=== PATIENT | female | born 1990 | race Caucasian/White ===

== ENCOUNTER 2019-10-12 20:05 | Inpatient (IN) | payer OTHER ==
[~2019-10-12] VITALS: Ht 160 cm; Wt 103.0 kg
[~2019-10-12 20:05] MED LIST: NORETHTP TOP; Verotin-Gr Cap1 EACH PO
[2019-10-12] MEDS ORDERED: LABE100 PO (20:54)
[2019-10-12] MEDS ORDERED: LEVSOD100 PO (20:56)
[2019-10-12] MEDS ORDERED: GABA300 PO (20:56)
[2019-10-12 20:57] LABS: BASOPHILS ABSOLUTE AUTO 0.02 K/mm3 (0.00-0.23); BASOPHILS PERCENT AUTO 0 % (0-2); EOSINOPHILS ABSOLUTE AUTO 0.13 K/mm3 (0.00-0.68); EOSINOPHILS PERCENT AUTO 1 % (0-6); Hematocrit 35.2 % (33.0-51.0); Hemoglobin 11.8 g/dL (11.5-16.0); IMMATURE GRAN ABSOLUTE AUTO 0.07 K/mm3 (0.00-0.10); IMMATURE GRAN PERCENT AUTO 1 % (0-1); LYMPHOCYTES ABSOLUTE AUTO 1.68 K/mm3 (0.84-5.20); LYMPHOCYTES PERCENT AUTO 17 % (21-46); MONOCYTES ABSOLUTE AUTO 0.81 K/mm3 (0.16-1.47); MONOCYTES PERCENT AUTO 8 % (4-13); Mean Corpuscular HGB 29.7 pg (26.0-34.0); Mean Corpuscular HGB Conc 33.5 g/dL (31.5-36.5); Mean Corpuscular Volume 89 fL (80-100); Mean Platelet Volume 12.5 fL (9.1-12.4); NEUTROPHILS ABSOLUTE AUTO 7.01 K/mm3 (1.96-9.15); NEUTROPHILS PERCENT AUTO 72 % (41-73); Platelet Count 178 K/mm3 (150-400); RDW Coefficient Variation 13.1 % (11.7-14.2); RDW Standard Deviation 42.4 fL (35.1-46.3); Red Blood Cell Count 3.97 M/mm3 (3.80-5.20); White Blood Cell Count 9.72 K/mm3 (4.00-11.30)
--- NOTE | 2019-10-13 03:52 | NUR ---
PT PAIN IS ASSESSED WITH ROUNDING AND VITALS. PT DENIES HAVING MUCH PAIN AND DECLINES ANY MEDICATIONS FOR PAIN WITH EACH ASSESSMENT. PT AGREES TO REPORT ANY CHANGES IN PAIN AND IF SHE DESIRES MEDICATION FOR PAIN CONTROL.
[2019-10-13 05:40] LABS: Hematocrit 32.6 % (33.0-51.0); Mean Corpuscular HGB Conc 33.7 g/dL (31.5-36.5); Mean Corpuscular Volume 89 fL (80-100); Mean Platelet Volume 12.3 fL (9.1-12.4); Platelet Count 178 K/mm3 (150-400); RDW Coefficient Variation 13.2 % (11.7-14.2); RDW Standard Deviation 42.4 fL (35.1-46.3); Red Blood Cell Count 3.67 M/mm3 (3.80-5.20); White Blood Cell Count 13.14 K/mm3 (4.00-11.30)
--- NOTE | 2019-10-13 08:47 | NUR ---
RN ROUNDED TO HELP W/ . PT STATES NB HAD FED WELL AN HOUR AGO. INSTRUCT/REVIEWED BOOKLET ON WHAT TO EXPECT DURING THE FIRST WEEK W/ , CHANGES IN NB, AND HOW TO CORRECTLY LINE UP AND LATCH NB. PT VERBALIZED UNDERSTANDING, DENIES ANY FURTHER QUESTIONS OR CONCERNS. RN WILL ATTEMPT TO ROUND AGAIN TODAY TO HELP W/ LATCH ON.
[2019-10-13] MEDS ORDERED: LEVSOD25 PO (14:19)
--- NOTE | 2019-10-13 16:04 | NUR ---
BOARDER MOTHER DISCHARGED TO BOARDER STATUS. VERBALIZES UNDERSTANDING OF DC INSTRUCTIONS AND FOLLOW UP APPOINTMENTS. CARING FOR SELF AND BABY INDEPENDANTLY. NO QUESTIONS OR CONCERNS. STABLE.
== END 2019-10-13 17:25 | disposition home or self-care (01) | DRG 807 ==
LOC: OBS 20:05 → BC 20:11 → OBS 20:23 → BC 20:25
PROVIDERS: ADMIT Advanced Practice Midwife
PROC: 10E0XZZ Delivery of Products of Conception, External Approach (ICD-10-PCS; principal; 2019-10-12)
PROC: 0UQMXZZ Repair Vulva, External Approach (ICD-10-PCS; 2019-10-12)
DX: O99.284 Endocrine, nutritional and metabolic diseases complicating childbirth (principal); Z37.0 Single live birth; E03.9 Hypothyroidism, unspecified; O10.92 Unspecified pre-existing hypertension complicating childbirth; O71.82 Other specified trauma to perineum and vulva; Z3A.39 39 weeks gestation of pregnancy
CPT/HCPCS: 36415; 85025; 85027; 86850; 86900; 86901; A9270-GY; J2210; J2590; J2791; J7120

== ENCOUNTER 2020-01-30 08:34 | Day surgery (SDC) | payer OTHER ==
[~2020-01-30] VITALS: Ht 160 cm; Wt 92.0 kg
[~2020-01-30 08:34] MED LIST changes: +Clomiphene Citr50 MG; +FISH OIL 1,2001 EAC7 PO; +GABA300 PO; +IBUP800 PO; +LABE100 PO; +LEVO-T50 MC1 PO; +LEVSOD100 PO; +LEVSOD25 PO; +Loratadine10 MG PO; +VITAMIN D325 MC3 PO
[2020-01-30] MEDS ORDERED: PRENATAL TABLE1 EAC2 (09:25)
== END 2020-01-30 12:22 | disposition home or self-care (01) ==
LOC: ORSCSDS 08:34
PROVIDERS: Obstetrics & Gynecology
PROC: 0UT74ZZ Resection of Bilateral Fallopian Tubes, Percutaneous Endoscopic Approach (ICD-10-PCS; principal; 2020-01-30 09:45)
DX: Z30.2 Encounter for sterilization (principal); N80.3 Endometriosis of pelvic peritoneum; I10 Essential (primary) hypertension; K21.9 Gastro-esophageal reflux disease without esophagitis; E03.9 Hypothyroidism, unspecified; Z79.899 Other long term (current) drug therapy; E66.01 Morbid (severe) obesity due to excess calories; Z68.35 Body mass index [BMI] 35.0-35.9, adult
CPT/HCPCS: 88302; J0171; J0690; J1100; J1885; J2405; J2704; J2710; J3010; J7120; U0002

== ENCOUNTER 2021-10-28 09:33 | Day surgery (SDC) | payer BC, OTHER ==
[~2021-10-28] VITALS: Ht 160 cm; Wt 88.9 kg
[~2021-10-28 09:33] MED LIST changes: +PRENATAL TABLE1 EAC2
--- NOTE | 2021-10-28 12:06 | NUR ---
10/28/21 1202 DEVIN BAUTISTA E CALL TO PATIENT'S TO UPDATE THAT PROCEDURE WAS DELAYED DUE TO PRIOR PROCEDURE RUNNING LONGER THAN EXPECTED. ADVISED WHEN PT WENT IN AND HE IS AWARE.
--- NOTE | 2021-10-28 12:55 | NUR ---
10/28/21 1255 LILY ARMAS 100ML NORMAL SALINE FLUID DEFICIT FROM HYSTEROSCOPY. SURGEON AND ANESTHESIA AWARE.
== END 2021-10-28 13:41 | disposition home or self-care (01) ==
LOC: ORSCSDS 09:33
PROVIDERS: Obstetrics & Gynecology
PROC: 0UDB8ZX Extraction of Endometrium, Via Natural or Artificial Opening Endoscopic, Diagnostic (ICD-10-PCS; principal; 2021-10-28 11:00)
PROC: 0U5B8ZZ Destruction of Endometrium, Via Natural or Artificial Opening Endoscopic (ICD-10-PCS; principal; 2021-10-28 11:00)
DX: N92.1 Excessive and frequent menstruation with irregular cycle (principal); N94.6 Dysmenorrhea, unspecified; I10 Essential (primary) hypertension; Z87.891 Personal history of nicotine dependence; E03.9 Hypothyroidism, unspecified; E28.2 Polycystic ovarian syndrome; Z79.899 Other long term (current) drug therapy; E66.9 Obesity, unspecified; Z68.34 Body mass index [BMI] 34.0-34.9, adult
CPT/HCPCS: 88305; A9270; J0690; J1100; J1885; J2405; J2704; J3010; J7120

== ENCOUNTER 2023-04-12 09:35 | Day surgery (SDC) | payer BC ==
[2023-04-12] VITALS (8 sets, daily range): BP systolic 106–145; BP diastolic 76–93
[~2023-04-12] VITALS: Ht 160 cm; Wt 90.9 kg
[~2023-04-12 09:35] MED LIST changes: +LEVSOD75 PO; +SPRITAM250 MG PO
[2023-04-12] MEDS ORDERED: ALDACTONE100 MG PO (10:06)
--- NOTE | 2023-04-12 10:26 | NUR ---
Ambulatory in Day Surgery. History, Chart, Medications and Allergies reviewed before start of procedure. Lungs clear T/O to Auscultation. Patient confirms NPO status and agrees with scheduled surgery. Pre-Op teaching done. Pt verbalizes understanding. Patient States Post-Procedure ride home has been arranged. PT BELONGINGS PLACED [facility]ATH [facility] FOR SAFEKEEPING. PT HAS TWO TRAGUS PIERCINGS, ONE ON EACH EAR THAT ARE TAPED.
--- NOTE | 2023-04-12 14:07 | NUR ---
Patient up to Ambulate independently. Gait steady. Discharge instructions reviewed with patient. Patient verbalizes understanding. Copy given to patient to take home. DR. PICHARDO SPOKE WITH PATIENT JUST PRIOR TO DISCHARGE.
== END 2023-04-12 14:07 | disposition home or self-care (01) ==
LOC: ORSCMMR 09:35 → ORD 11:30 → ORSCMMR 14:07 → ORD 15:00 → ORSCMMR 04-15 22:44
PROVIDERS: Obstetrics & Gynecology
PROC: 0HB9XZZ Excision of Perineum Skin, External Approach (ICD-10-PCS; principal; 2023-04-12 11:30)
DX: R10.2 Pelvic and perineal pain (principal); N94.6 Dysmenorrhea, unspecified; N84.2 Polyp of vagina; E03.9 Hypothyroidism, unspecified; K21.9 Gastro-esophageal reflux disease without esophagitis; Z79.899 Other long term (current) drug therapy; E66.9 Obesity, unspecified; Z68.35 Body mass index [BMI] 35.0-35.9, adult
CPT/HCPCS: 88305; A9270; J0690; J1100; J1885; J2405; J2704; J3010; J7120

== ENCOUNTER 2024-09-11 08:20 | Day surgery (SDC) | payer BC ==
[~2024-09-11] VITALS: Ht 162.6 cm; Wt 81.7 kg
[2024-09-11] VITALS (12 sets, daily range): BP systolic 132–150; BP diastolic 82–98
[~2024-09-11 08:20] MED LIST changes: +ALDACTONE100 MG PO
--- NOTE | 2024-09-11 08:57 | NUR ---
History, Chart, Medications and Allergies reviewed before start of procedure. Patient confirms NPO status and agrees with scheduled surgery. Patient reports hx of sterilization surgery, no hcg indicated.
[2024-09-11] MEDS ORDERED: HydrALAZINE HCl 20 MG / ML 1ML Vial IV PRN (09:10)
[2024-09-11] MEDS ORDERED: FentaNYL Citrate 50 MCG/ML 2 ML Injection IV PRN ×2 (09:10→09:15)
[2024-09-11] MEDS ORDERED: HYDROmorphone HCl/Pf 1MG SYR IV PRN ×3 (09:10→13:35)
[2024-09-11] MEDS ORDERED: FentaNYL Citrate 50 MCG/ML 5 ML Injection ONE (09:14)
[2024-09-11] MEDS ORDERED: propofoL 20 ML IV ONE (09:14)
[2024-09-11] MEDS ORDERED: Metoclopramide HCl 5MG / ML 2ML Vial IV PRN (09:15)
[2024-09-11] MEDS ORDERED: Prochlorperazine Edisylate 10 mg Vial IV PRN (09:15)
[2024-09-11] MEDS ORDERED: Acetaminophen 500 MG Tab PO ONE (09:15)
[2024-09-11] MEDS ORDERED: Lidocaine HCl 1% 5 ML SYR INJ ONE ×2 (09:15→09:55)
[2024-09-11] MEDS ORDERED: Lidocaine HCl 2% 20 ML MDV ONE (09:16)
[2024-09-11] MEDS ORDERED: Rocuronium Bromide 10 MG/ML 5ML Injection IV ONE (09:16)
[2024-09-11] MEDS ORDERED: Lactated Ringer's 1,000 ML IV SCH ×2 (09:30→13:40)
[2024-09-11] MEDS ORDERED: CeFAZolin Sodium 2,000 MG in NS 100 ML IV SCH ×2 (09:30→16:30)
[2024-09-11] MEDS ORDERED: CeFAZolin Sodium 2,000 MG VIAL ONE (09:38)
[2024-09-11] MEDS ORDERED: Scopolamine Hydrobromide Patch TOP SCH (09:55)
[2024-09-11] MEDS ORDERED: Meclizine HCl 25 MG Tab PO ONE (09:55)
[2024-09-11] MEDS ORDERED: Magnesium Sulfate 500 MG / ML 2ML Vial ONE (09:58)
[2024-09-11] MEDS ORDERED: Ondansetron HCl 2 MG / ML 2ML Vial ONE (10:03)
[2024-09-11] MEDS ORDERED: Metoclopramide HCl 5MG / ML 2ML Vial ONE (10:03)
[2024-09-11] MEDS ORDERED: Bupivacaine 0.5% W/EPI 1:200000 SDV 30 ML Vial ONE (10:06)
[2024-09-11] MEDS ORDERED: HYDROmorphone HCl/Pf 1MG SYR ONE ×2 (10:58→12:28)
[2024-09-11] MEDS ORDERED: Sugammadex Sodium 200 MG/2ML SDV (100 MG/ML) ONE (12:36)
[2024-09-11] MEDS ORDERED: Ondansetron HCl 2 MG / ML 2ML Vial IV PRN (13:40)
[2024-09-11] MEDS ORDERED: Naloxone HCl 0.4MG / ML 1ML Vial IV PRN (13:40)
[2024-09-11] MEDS ORDERED: Promethazine HCl 12.5 MG Supp PR PRN (13:40)
[2024-09-11] MEDS ORDERED: OxyCODONE 5 mg/Acetamin 325 mg TABLET PO PRN (13:40)
[2024-09-11] MEDS ORDERED: Simethicone 80 MG Chew PO PRN (13:45)
[2024-09-11] MEDS ORDERED: Ondansetron 4 MG TAB PO PRN (13:45)
[2024-09-11] MEDS ORDERED: Promethazine HCl 25 MG Tab PO PRN (13:45)
--- NOTE | 2024-09-11 13:45 | NUR ---
ARRIVAL TO SURGICAL UNIT VIA GOURNEY, SLID TO HOSPITAL BED. ALERT, ORIENTED, & PLEASANT. LUNGS CLEAR. HRR, TACHY. ABD SOFT w/ LAP SITES x 5 w/ WOUND GLUE. NO DRNG NOTED. DENIES PAIN OR N/V. PLEASANT & UPBEAT. SNACKS & WATER GIVEN. WISHES TO SLEEP.
[2024-09-11] MEDS ORDERED: Ketorolac Tromethamine 30mg Vial IV PRN (13:55)
[2024-09-11] MEDS ORDERED: Percocet 5-3251 EACH PO (15:26)
[2024-09-11] MEDS ORDERED: TRANSDERM-SCOP1 EA10 TD (15:26)
[2024-09-11] MEDS ORDERED: PROM25 PO (15:26)
[2024-09-11] MEDS ORDERED: SIME80CH PO (15:27)
--- NOTE | 2024-09-11 15:59 | NUR ---
DISCHARGE CONTINUES TO DENY PAIN OR N/V. TAKING IN PO WELL. VOIDED. AMBULATED. WISHES TO GO HOME. ABD BINDER GIVEN. ESCORTED OUT VIA WC.
[2024-09-12] MEDS ORDERED: Levothyroxine Sodium 0.075 MG Tab PO SCH (06:00)
== END 2024-09-11 15:54 | disposition home or self-care (01) ==
LOC: ORSCMMR 08:20 → ORD 10:30 → SURS 13:29 → ORSCMMR 15:54
PROVIDERS: Obstetrics & Gynecology
PROC: 0UT94ZZ Resection of Uterus, Percutaneous Endoscopic Approach (ICD-10-PCS; principal; 2024-09-11 10:30)
DX: R10.2 Pelvic and perineal pain (principal); N93.8 Other specified abnormal uterine and vaginal bleeding; R19.00 Intra-abdominal and pelvic swelling, mass and lump, unspecified site; N94.6 Dysmenorrhea, unspecified; N80.03 Adenomyosis of the uterus; N99.85 Post endometrial ablation syndrome; I10 Essential (primary) hypertension; E03.9 Hypothyroidism, unspecified; Z79.899 Other long term (current) drug therapy
CPT/HCPCS: 86850; 86900; 86901; 88307; A9270; J0690; J1171; J2405; J2704; J2765; J3010; J3475; J7120

== ENCOUNTER → 2024-12-01 | Outpatient (CLI) | payer BC ==
[~2024-12-01] MED LIST changes: +PROM25 PO; +Percocet 5-3251 EACH PO; +SIME80CH PO; +TRANSDERM-SCOP1 EA10 TD
[2024-12-01 11:19] LABS: BASOPHILS ABSOLUTE AUTO 0.02 K/mm3 (0.00-0.23); BASOPHILS PERCENT AUTO 0 % (0-2); EOSINOPHILS ABSOLUTE AUTO 0.01 K/mm3 (0.00-0.68); EOSINOPHILS PERCENT AUTO 0 % (0-6); Hematocrit 47.6 % (33.0-51.0); Hemoglobin 16.6 g/dL (11.5-16.0); IMMATURE GRAN ABSOLUTE AUTO 0.04 K/mm3 (0.00-0.10); IMMATURE GRAN PERCENT AUTO 0 % (0-1); LYMPHOCYTES ABSOLUTE AUTO 0.83 K/mm3 (0.84-5.20); LYMPHOCYTES PERCENT AUTO 7 % (21-46); MONOCYTES ABSOLUTE AUTO 0.21 K/mm3 (0.16-1.47); MONOCYTES PERCENT AUTO 2 % (4-13); Mean Corpuscular HGB Conc 34.9 g/dL (31.5-36.5); Mean Corpuscular Volume 89 fL (80-100); Mean Platelet Volume 11.1 fL (9.1-12.4); NEUTROPHILS PERCENT AUTO 90 % (41-73); Platelet Count 296 K/mm3 (150-400); RDW Coefficient Variation 11.6 % (11.7-14.2); RDW Standard Deviation 36.9 fL (35.1-46.3); Red Blood Cell Count 5.36 M/mm3 (3.80-5.20); White Blood Cell Count 11.31 K/mm3 (4.00-11.30)
[2024-12-01 11:32] LABS: Albumin, Blood 4.4 g/dL (3.4-5.0); Bilirubin, Total 0.5 mg/dL (0.1-1.0); Calcium, Blood 9.5 mg/dL (8.5-10.1); Globulin, Blood 4.2 g/dL (2.2-4.0); Potassium, Blood 3.7 mmol/L (3.5-5.5); Total Protein, Blood 8.6 g/dL (6.4-8.2)
== END | disposition home or self-care (01) ==
LOC: LAB SHORT 11:14 → LAB 11:14
PROVIDERS: Physician Assistant
DX: R10.84 Generalized abdominal pain (principal)
CPT/HCPCS: 80053; 83690; 85025

== ENCOUNTER 2024-12-03 18:10 | Observation (INO) | payer BC ==
[~2024-12-03] VITALS: Ht 157.5 cm; Wt 79.6 kg
[2024-12-03] MEDS ORDERED: Ketorolac Tromethamine 15mg Vial IV ONE (18:30)
[2024-12-03 19:01] LABS: BASOPHILS ABSOLUTE AUTO 0.05 K/mm3 (0.00-0.23); BASOPHILS PERCENT AUTO 0 % (0-2); EOSINOPHILS ABSOLUTE AUTO 0.31 K/mm3 (0.00-0.68); EOSINOPHILS PERCENT AUTO 2 % (0-6); Hematocrit 45.8 % (33.0-51.0); Hemoglobin 15.4 g/dL (11.5-16.0); IMMATURE GRAN ABSOLUTE AUTO 0.05 K/mm3 (0.00-0.10); IMMATURE GRAN PERCENT AUTO 0 % (0-1); LYMPHOCYTES ABSOLUTE AUTO 2.89 K/mm3 (0.84-5.20); LYMPHOCYTES PERCENT AUTO 23 % (21-46); MONOCYTES ABSOLUTE AUTO 1.06 K/mm3 (0.16-1.47); MONOCYTES PERCENT AUTO 8 % (4-13); Mean Corpuscular HGB Conc 33.6 g/dL (31.5-36.5); Mean Corpuscular Volume 89 fL (80-100); NEUTROPHILS ABSOLUTE AUTO 8.35 K/mm3 (1.96-9.15); NEUTROPHILS PERCENT AUTO 66 % (41-73); NRBC ABSOLUTE 0.00 K/mm3 (0.00-0.02); NRBC Auto 0.0 /100 WBC (0.0-0.2); Platelet Count 279 K/mm3 (150-400); RDW Coefficient Variation 11.5 % (11.7-14.2); RDW Standard Deviation 37.2 fL (35.1-46.3)
[2024-12-03 19:26] LABS: Alanine Aminotransfer (ALT/SGP 19.0 U/L (12-78); Albumin, Blood 3.8 g/dL (3.4-5.0); Albumin/Globulin Ratio 0.9 (0.8-1.8); Anion Gap 8.0 mmol/L (3-11); Aspartate Aminotrans (AST/SGOT 11.0 U/L (12-37); Bilirubin, Total 0.7 mg/dL (0.1-1.0); Blood Urea Nitrogen 13.0 mg/dL (8-24); CO2, Blood 30.0 mmol/L (21-32); Calcium, Blood 9.3 mg/dL (8.5-10.1); Chloride, Blood 102.0 mmol/L (98-108); Creatinine, Blood 0.94 mg/dL (0.40-1.00); Globulin, Blood 4.1 g/dL (2.2-4.0); Glucose, Blood 102.0 mg/dL (70-99); Potassium, Blood 3.4 mmol/L (3.5-5.5); Sodium, Blood 137.0 mmol/L (136-145); Total Protein, Blood 7.9 g/dL (6.4-8.2)
[2024-12-03] MEDS ORDERED: THERA-D2000 UNIT PO (21:37)
[2024-12-03] MEDS ORDERED: Morphine Sulfate 4 MG/1 ML Injection IV ONE (21:55)
[2024-12-03] MEDS ORDERED: Ondansetron HCl 2 MG / ML 2ML Vial IV ONE (21:55)
[2024-12-03] MEDS ORDERED: CefTRIAXone Sodium 1,000 MG in NS 100 ML IV ONE (22:40)
[2024-12-03] MEDS ORDERED: Morphine Sulfate 4 MG/1 ML Injection IV PRN (22:40)
[2024-12-03] MEDS ORDERED: Ondansetron HCl 2 MG / ML 2ML Vial IV PRN (22:40)
[2024-12-04] VITALS (14 sets, daily range): BP systolic 131–156; BP diastolic 81–104
[2024-12-04] MEDS ORDERED: MetroNIDAZOLE 500MG/NS 100 ml 100 ML IV SCH
--- NOTE | 2024-12-04 03:00 | NUR ---
PT ARRIVED TO ROOM 227 FROM ER. PT A/O, TX SELF INDEP. VSS. PT REP DIFF TAKING DEEP BREATHS R/T ABD PAIN. PT REP ABD PAIN LETI AT THIS TIME, DENIES N/V. ABD MOD DISTENDED, TENDER TO PALP, BT HYPO. PT AND SPOUSE ORIENTED TO ROOM/CALL LIGHT AND TX PLAN.
[2024-12-04] MEDS ORDERED: Bupivacaine 0.5% HCl 5 MG/ML 30MLVIAL ONE (08:08)
--- NOTE | 2024-12-04 08:17 | NUR ---
PT NPO SINCE ARRIVING TO FLOOR, VSS. PT DENIED PAIN/N/V. IVF CONT PER ORDERS. PLAN FOR SURGERY TODAY. BEDSIDE REP GIVEN TO ANIVAL REHMAN.
[2024-12-04] MEDS ORDERED: THYR60 (08:26)
[2024-12-04] MEDS ORDERED: FentaNYL Citrate 50 MCG/ML 2 ML Injection ONE ×3 (10:51→11:43)
[2024-12-04] MEDS ORDERED: Dexamethasone Sod Phos 10 MG/ML 1ML VIAL ONE (11:03)
[2024-12-04] MEDS ORDERED: Albuterol 2.5 MG/3 ML VIAL INH PRN (11:25)
[2024-12-04] MEDS ORDERED: Ketorolac Tromethamine 30mg Vial IV PRN (11:35)
[2024-12-04] MEDS ORDERED: Ondansetron HCl 2 MG / ML 2ML Vial ONE (11:38)
[2024-12-04] MEDS ORDERED: Sugammadex Sodium 200 MG/2ML SDV (100 MG/ML) ONE (12:09)
[2024-12-04] MEDS ORDERED: HYDROcodone 5-APAP 325 TAB PO PRN (12:35)
[2024-12-04] MEDS ORDERED: Ketorolac Tromethamine 30mg Vial ONE (13:02)
--- NOTE | 2024-12-04 13:20 | NUR ---
PT TO ROOM 227 FROM PACU. ALERT TO VERBAL. STAND AND PIVOT TRANSFER TO BED. POST OP VS STARTED AND STABLE. LAP SITES X-3 TO ABDOMEN WTIH GAUZE/TEGADERM CDI. DENIES PAIN OR NAUSEA. WATER/SNACKS PROVIDED. MOTHER AT BEDSIDE.
[2024-12-04] MEDS ORDERED: Norco 5-325 Ta1 EACH PO (16:26)
--- NOTE | 2024-12-04 17:09 | NUR ---
DC INSTRUCT REVEIWED WITH PT AND SO. STATED UNDERSTANDING. DC'D TO POV VIA W/C WITH PRINTED INSTRUCT AND HANDWRITTEN RX NORCO.
[2024-12-04] MEDS ORDERED: CefTRIAXone Sodium 1,000 MG in NS 100 ML IV SCH (22:00)
== END 2024-12-04 17:43 | disposition home or self-care (01) ==
LOC: ER 18:10 → SURS 18:11 → ER 22:41 → SURS 22:41
PROVIDERS: Physician Assistant; Surgery; ADMIT Surgery
PROC: 0FT44ZZ Resection of Gallbladder, Percutaneous Endoscopic Approach (ICD-10-PCS; principal; 2024-12-04 10:30)
DX: K80.12 Calculus of gallbladder with acute and chronic cholecystitis without obstruction (principal); Z88.8 Allergy status to other drugs, medicaments and biological substances; Z91.018 Allergy to other foods; Z79.899 Other long term (current) drug therapy
CPT/HCPCS: 76705; 80053; 83690; 85025; 88304; 93005; 93010; 96374; 96375; 99285-25; A9270; C1729; J0696; J1100; J1885; J2270; J2405; J2704; J3010; J7120